=== PATIENT | male | born 1975 | race African-American/Black ===

== ENCOUNTER 2020-02-21 16:01 | Emergency (ER) | payer SELFPAY ==
[~2020-02-21] VITALS: Ht 172.7 cm; Wt 65.8 kg
[2020-02-21 16:10] VITALS: BP 125/85
--- NOTE | 2020-02-21 16:10 | NUR ---
ED Nurse Note: Pt brought in by ambulance and [employer] d/t running in the street and rambling, incoherent speech. Pt given 5 mg versed IM bellman captain. Respirations even and unlabored on room air. Per EMS, HR 160 in before arrival. HR in the 130s on the monitor. All other vitals stable as documented. Pt will not give name or any information.
--- NOTE | 2020-02-21 16:17 | Emergency Room Report ---
History of Present Illness General Chief Complaint: Behavioral Complaint Source: EMS Present Illness HPI Patient is a 42-year-old male brought in by EMS after increased problems or behavior. He been found walking in traffic. Was noted to be tachycardic and brought in by EMS.Patient had unknown past medical history and history is markedly limited by patient's mental status and poor cooperation. Allergies: Coded Allergies: UNABLE TO ASSESS (Unverified , 02/21/20) pt aloc and no family/friends present COVID-19 Screening Contact w/high risk pt: No Recent Travel to affected area: No Experienced COVID-19 symptoms?: No COVID-19 Testing performed SOLUTION DESIGNER: No Patient History Past Medical History: see triage record Reviewed Nursing Documentation: PMH: Agreed; PSxH: Agreed Nursing Documentation-PMH Past Medical History Deferred: Pt Cognitively Impaired Past Medical History: Deferred Review of Systems All Other Systems: negative except mentioned in HPI Physical Exam Vital Signs Date Time Temp Pulse Resp B/P (MAP) Pulse Ox O2 Delivery O2 Flow Rate FiO2 02/21/20 15:58 99.3 160 20 118/80 (93) 98 Room Air Sp02 EP Interpretation: reviewed, normal General Appearance: normal inspection, well appearing, no apparent distress, alert Head: atraumatic ENT: normal ENT inspection, hearing grossly normal, normal voice Neck: normal inspection, full range of motion, supple, no bony tend Respiratory: normal inspection, lungs clear, normal breath sounds, no respiratory distress, no retraction, no wheezing Cardiovascular #1: regular rate, rhythm, no edema Gastrointestinal: normal inspection, normal bowel sounds, non tender, soft, no guarding, no hernia Genitourinary: no CVA tenderness Musculoskeletal: normal inspection, back normal, normal range of motion Neurologic: alert, motor strength/tone normal, plant quality manager III-XII nml as tested, oriented x3, responsive, speech normal, normal inspection Psychiatric: normal inspection, judgement/insight normal, mood/affect normal Medical Decision Making Diagnostic Impression: Primary Impression: Behavioral change Additional Impression: Amphetamine abuse ER Course Patient presented for behavioral change. Differential diagnosis include was not limited to substance abuse, psychosis, intracranial hemorrhage, among others. Because of complexity of patient's case laboratory tests and imaging studies were ordered. CT imaging showed no evidence of acute intracranial hemorrhage or CVA. Laboratory testing was notable for urine drug screen positive for amphetamine. Patient had been given benzodiazepine prior to arrival by EMS. Patient was given Haldol in the emergency department. He was subsequently more calm. Tachycardia appears to be related to amphetamine use. Patient was given IV fluids as well as IV thiamine.Patient appears to be improved after medications.Patient had improvement in his tachycardia Patient continued to refuse to give identification. He subsequently stated he wanted to leave the hospital. Patient does not appear to be holdable at this time. Patient was noted to be ambulatory without assistance at the time of discharge. He states he wanted to leave to go back to his spot. This medical record is generated with [email or web address] technical support consultant software. There may be some technical support consultant discrepancies related to use of this software Laboratory Tests Test 02/21/20 16:10 02/21/20 16:30 White Blood Count 12.2 K/UL (4.8-10.8) H Red Blood Count 4.91 M/UL (4.70-6.10) Hemoglobin 14.1 G/DL (14.2-18.0) L Hematocrit 43.7 % (42.0-52.0) Mean Corpuscular Volume 89 FL (80-99) Mean Corpuscular Hemoglobin 28.8 PG (27.0-31.0) Mean Corpuscular Hemoglobin Concent 32.4 G/DL (32.0-36.0) Red Cell Distribution Width 13.0 % (11.6-14.8) Platelet Count 227 K/UL (150-450) Mean Platelet Volume 7.4 FL (6.5-10.1) Neutrophils (%) (Auto) 76.2 % (45.0-75.0) H Lymphocytes (%) (Auto) 14.7 % (20.0-45.0) L Monocytes (%) (Auto) 7.4 % (1.0-10.0) Eosinophils (%) (Auto) 1.2 % (0.0-3.0) Basophils (%) (Auto) 0.5 % (0.0-2.0) Sodium Level 145 MMOL/L (136-145) Potassium Level 4.1 MMOL/L (3.5-5.1) Chloride Level 105 MMOL/L (98-107) Carbon Dioxide Level 26 MMOL/L (21-32) Anion Gap 14 mmol/L (5-15) Blood Urea Nitrogen 18 mg/dL (7-18) Creatinine 1.4 MG/DL (0.55-1.30) H Estimated Glomerular Filtration Rate > 60 mL/min (>60) Glucose Level 90 MG/DL (74-106) Calcium Level 9.5 MG/DL (8.5-10.1) Total Bilirubin 1.6 MG/DL (0.2-1.0) H Direct Bilirubin 0.3 MG/DL (0.0-0.3) Aspartate Amino Transferase (AST) 34 U/L (15-37) Alanine Aminotransferase (ALT) 33 U/L (12-78) Alkaline Phosphatase 71 U/L (46-116) Total Protein 8.1 G/DL (6.4-8.2) Albumin 4.5 G/DL (3.4-5.0) Globulin 3.6 g/dL Albumin/Globulin Ratio 1.2 (1.0-2.7) Salicylates Level 0.7 ug/mL (2.8-20) L Acetaminophen Level < 2 MCG/ML (10-30) L Serum Alcohol < 3 mg/dL Urine Opiates Screen Negative (NEGATIVE) Urine Barbiturates Screen Negative (NEGATIVE) Phencyclidine (PCP) Screen Negative (NEGATIVE) Urine Amphetamines Screen Positive (NEGATIVE) H Urine Benzodiazepines Screen Positive (NEGATIVE) H Urine Cocaine Screen Negative (NEGATIVE) Urine Marijuana (THC) Screen Negative (NEGATIVE) EKG Diagnostic Results Rate: normal Rhythm: NSR ST Segments: no acute changes Last Vital Signs Date Time Temp Pulse Resp B/P (MAP) Pulse Ox O2 Delivery O2 Flow Rate FiO2 02/21/20 15:58 99.3 160 20 118/80 (93) 98 Room Air Status: improved Disposition: HOME, SELF-CARE Condition: Stable Referrals: NOT CHOSEN IPA/,REFERRING (PCP) Vinicio Smalls MD February 21, 2020 16:17
[2020-02-21 16:21] LABS: BASOPHILS % (AUTO) 0.5 % (0.0-2.0); EOSINOPHILS % (AUTO) 1.2 % (0.0-3.0); HEMATOCRIT 43.7 % (42.0-52.0); HEMOGLOBIN 14.1 G/DL (14.2-18.0); LYMPHOCYTES % (AUTO) 14.7 % (20.0-45.0); MEAN CORPUSCULAR VOLUME 89 FL (80-99); MONOCYTES % (AUTO) 7.4 % (1.0-10.0); NEUTROPHILS % (AUTO) 76.2 % (45.0-75.0); PLATELET COUNT 227 K/UL (150-450); RED BLOOD COUNT 4.91 M/UL (4.70-6.10); WHITE BLOOD COUNT 12.2 K/UL (4.8-10.8)
[2020-02-21] MEDS ORDERED: Thiamine HCl 100mg/ml 2 ml Inj ONE (16:23)
[2020-02-21] MEDS ORDERED: Haloperidol Lactate 5 MG in D5W 55 ML IVPB ONE (16:30)
[2020-02-21] MEDS ORDERED: Thiamine HCl 100 MG in D5W 55 ML IVPB ONE (16:30)
[2020-02-21 16:31] LABS: ANION GAP 14 mmol/L (5-15); BLOOD UREA NITROGEN 18 mg/dL (7-18); CALCIUM 9.5 MG/DL (8.5-10.1); CARBON DIOXIDE 26 MMOL/L (21-32); CHLORIDE 105 MMOL/L (98-107); CREATININE 1.4 MG/DL (0.55-1.30); POTASSIUM 4.1 MMOL/L (3.5-5.1); SODIUM 145 MMOL/L (136-145)
--- NOTE | 2020-02-21 16:37 | NUR ---
ED Nurse Note: pt in radiology
[2020-02-21 16:42] LABS: ALANINE AMINOTRANSFERASE 33 U/L (12-78); ALBUMIN 4.5 G/DL (3.4-5.0); ALBUMIN/GLOBULIN RATIO 1.2 (1.0-2.7); ALKALINE PHOSPHATASE 71 U/L (46-116); ASPARTATE AMINO TRANSFERASE 34 U/L (15-37); BILIRUBIN,TOTAL 1.6 MG/DL (0.2-1.0)
[2020-02-21 17:00] LABS: BILIRUBIN,DIRECT 0.3 MG/DL (0.0-0.3)
--- NOTE | 2020-02-21 17:01 | Diagnostic Imaging Report ---
EXAM: CT CT Head no Contrast INDICATION: Reason For Exam: AMS. TECHNIQUE: Axial images of the brain were obtained with subsequent sagittal and coronal reformats. All CT scans at this facility are performed using dose modulation techniques as appropriate to a performed exam including the following: automated exposure control with adjustment of the mA and/or kV according to patient size. COMPARISON STUDY: None. RADIATION DOSE: CTDIvol: 53.4 mGy DLP: 1045.5 mGy-cm Dose information generated by the CT scanner is available in PACS. FINDINGS: There is normal symmetry and normal shirley-white differentiation. There is no acute large territory cortical infarct, hemorrhage, mass effect or shift. Ventricles and cisterns as well as brainstem and posterior fossa appear unremarkable. The sellar region is normal. Sinuses, mastoid air cells and bony calvarium appear intact. IMPRESSION: NO ACUTE INTRACRANIAL ABNORMALITY.
--- NOTE | 2020-02-21 18:24 | NUR ---
ELOPEMENT: Pt refusing to wait for discharge paperwork. Had to stop patient to remove IV and cardiac monitor technician. Pt states he "just wants to go back to his spot." Refuses to give any information on his name or where he is going. Pt eloped without signing discharge paperwork.
== END 2020-02-21 18:24 | disposition home or self-care (01) ==
LOC: EDBD 16:01 → EMR 16:07
DX: F68.8 Other specified disorders of adult personality and behavior (principal); F15.10 Other stimulant abuse, uncomplicated; R00.0 Tachycardia, unspecified
CPT/HCPCS: 36415; 70450; 80053; 80307; 82248; 85025; 93005; 96365; 96375; 99284; G0480; J1630; J7030